=== PATIENT | male | born 1950 | race Caucasian/White ===

== ENCOUNTER 2018-07-22 10:55 | Outpatient (REF) | payer MEDICARE, MEDICAID, SELFPAY ==
[2018-07-22 22:03] LABS: HCT 48.9 % (40.0-50.0); HGB 17.1 g/dL (13.5-17.5); Mean Corpuscular Hemoglobin 32.7 pg (27.0-33.0); Mean Corpuscular Volume 93.5 fL (80-95); Mean Platelet Volume 10.1 fL (8.0-11.0); Platelet Count 372 x1000/uL (130-400); RBC 5.23 m/cumm (4.50-6.00); RBC Distribution Width 13.5 % (11.8-14.1); White Blood Cell Count 7.19 k/cumm (4.4-10.8)
[2018-07-22 22:10] LABS: ALT 24 U/L (12-78); AST 15 U/L (15-37); Albumin 3.7 g/dL (3.4-5.0); Alkaline Phosphatase 87 U/L (46-116); Anion Gap 7.7 mmol/L (3-11); BUN 7 mg/dL (7-18); Bilirubin, Total 0.3 mg/dL (0.2-1.0); CO2 31.3 mmol/L (21.0-32.0); CREATININE 0.63 mg/dL (0.70-1.30); Calcium 9.6 mg/dL (8.5-10.1); Chloride 97 mmol/L (98-107); Cholesterol 169 mg/dL (50-200); Glucose 100 mg/dL (70-100); HDL Cholesterol 33 mg/dL (40-60); LDL CHOLESTEROL 114 mg/dL (<100); Potassium 4.8 mmol/L (3.5-5.1); Sodium 136 mmol/L (136-145); Total Protein 6.6 g/dL (6.4-8.2); Triglyceride 118 mg/dL (30-150)
[2018-07-24 10:16] LABS: Hepatitis C Ab w Rflx HCV PCR Negative (NEGAT)
== END 2018-07-22 11:15 ==
LOC: NCHCN 10:55
PROVIDERS: PCP Family Medicine; Visit Provider Internal Medicine
DX: J44.9 Chronic obstructive pulmonary disease, unspecified (principal); I73.9 Peripheral vascular disease, unspecified; F10.10 Alcohol abuse, uncomplicated; F17.200 Nicotine dependence, unspecified, uncomplicated; Z11.59 Encounter for screening for other viral diseases
CPT/HCPCS: 80053; 80061; 83721; 85027; 86803

== ENCOUNTER 2018-10-23 11:34 | Outpatient (REF) | payer MEDICARE, MEDICAID, SELFPAY ==
[2018-10-23 13:46] LABS: ALT 61 U/L (12-78); AST 42 U/L (15-37); Calculated LDL 75; Cholesterol 141 mg/dL (50-200); HDL Cholesterol 52 mg/dL (40-60); Triglyceride 73 mg/dL (30-150)
== END 2018-10-23 11:54 ==
LOC: NCHCN 11:34
PROVIDERS: PCP Family Medicine; Visit Provider Internal Medicine
DX: J44.9 Chronic obstructive pulmonary disease, unspecified (principal); E78.6 Lipoprotein deficiency; I73.9 Peripheral vascular disease, unspecified
CPT/HCPCS: 80061; 83721; 84450; 84460

== ENCOUNTER 2020-10-04 23:50 | Emergency (ER) | payer OTHER, MEDICAID, SELFPAY ==
[2020-10-04 23:52] VITALS: BP 155/87; PULSE 92; RESP 18; TEMP 36.8; O2SAT 95
--- NOTE | 2020-10-04 23:56 | ED.GENADUL_ITS ---
Discharge Plan Disposition Patient Disposition: HOME Condition: Good Discharge Details Clinical Impression: Low back strain Primary Care Provider: Chanda Borges ED Provider: Reginaldo Romero Meds and New Rx's Prescriptions: New methocarbamol 500 mg tablet 500 mg PO TID PRN (Reason: spasms) Qty: 15 RF: 0 ibuprofen 600 mg tablet 600 mg PO TID PRN (Reason: pain) Qty: 15 RF: 0 lidocaine 5 % adhesive patch,medicated 1 patch topical DAILY Qty: 15 RF: 0 Continued albuterol sulfate 2.5 MG/3 ML solution for nebulization 2.5 mg UPD Q2H PRN PRNQty: 60 RF: 1 Nicotrol 10 MG cartridge 10 mg Inhalation DIRECTED PRN (Reason: cigarette cravings) Qty: 1 RF: 0 nicotine 1 EACH patch 24 hour 1 ea Transdermal DAILY Qty: 42 RF: 0 clopidogrel 75 mg tablet 75 mg PO DAILY RF: 0 aspirin 81 mg tablet,delayed release (DR/EC) 81 mg PO DAILY RF: 0 budesonide-formoterol [Symbicort] 160-4.5 mcg/actuation HFA aerosol inhaler 1 puff INHALATION DAILY RF: 0 Discharge Instructions Instructions: Low Back Strain (ED) Additional Instructions: Your pain is related to low back strain from lifting. Should improve with time, heat, gentle stretching. You may use lidocaine patch, ibuprofen, methocarbamol for pain and spasm but take only as directed. Follow-up with primary care next week if not improving. Return to ED for any neurologic change, bladder or bowel dysfunction, abdominal pain, other concerns. Referrals: Chanda Borges [Primary Care Provider] - Medical Decision Making Patient with low back pain related to lifting heavy object. Does have some mid lumbar spinal tenderness so will obtain x-ray given age. Will treat with IM ketorolac, topical lidocaine patch, p.o. Robaxin. X-ray of the LS spine negative for any acute findings. Patient seems better after medications. Will be discharged home on ibuprofen, Robaxin, lidocaine patches. Heat, gentle stretching, follow-up with PCP next week if not improving. Return to ED for any neurologic change, bladder bowel dysfunction, abdominal pain. HPI General Mode of arrival: EMS . Date/Time Provider Initiated Documentation: 10/04/20 23:56 . Limitations to Documentation: no limitations . Information obtained by: patient, EMS and RN notes reviewed . HPI Narrative: Patient presents to ED by ambulance with low back pain. Patient reports renting a joey today. As he was lifting it to get it into the house he felt pain in his lower back. He was unable to get into the house. Subsequently has had worsening back pain. Denies having any abdominal pain, bladder or bowel dysfunction, numbness, weakness. He did drink 3 Budweiser beers but did not take anything for pain. He is now here because movement is very uncomfortable and he cannot get any sleep because of the back pain. Related Data Home Medications Medication Instructions Recorded Confirmed Nicotrol 10 mg INHALATION DIRECTED PRN 07/20/15 10/04/20 #1 ctr albuterol sulfate 2.5 mg UPD Q2H PRN PRN #60 vial NS 07/20/15 10/04/20 nicotine 1 ea TRANSDERMAL DAILY #42 07/20/15 10/04/20 patch.td24 aspirin 81 mg PO DAILY 10/04/20 10/04/20 budesonide-formoterol [Symbicort] 1 puff INHALATION DAILY 10/04/20 10/04/20 clopidogrel 75 mg PO DAILY 10/04/20 10/04/20 ibuprofen 600 mg PO TID PRN #15 tab 10/05/20 lidocaine 1 patch TOPICAL DAILY #15 ea 10/05/20 methocarbamol 500 mg PO TID PRN #15 tab 10/05/20 Previous Rx's Medication Instructions Recorded Nicotrol 10 mg INHALATION DIRECTED PRN 07/20/15 #1 ctr albuterol sulfate 2.5 mg UPD Q2H PRN PRN #60 vial NS 07/20/15 nicotine 1 ea TRANSDERMAL DAILY #42 07/20/15 patch.td24 ibuprofen 600 mg PO TID PRN #15 tab 10/05/20 lidocaine 1 patch TOPICAL DAILY #15 ea 10/05/20 methocarbamol 500 mg PO TID PRN #15 tab 10/05/20 Allergies Allergy/AdvReac Type Severity Reaction Status Date / Time No Known Allergies Allergy Unverified 10/19/16 07:42 Review of Systems Narrative: As documented in HPI otherwise negative as below. Const: no fever, chills, weakness Resp: no cough, SOB, pleuritic pain CV: no CP, diaphoresis, edema, syncope GI: no abdominal pain, nausea, vomiting, diarrhea Neuro: no headache, numbness, focal weakness, confusion [facility] Medical History (Updated 10/05/20 @ 01:54 by Reginaldo Romero MD) Alcohol dependence Atrial arrhythmia COPD (chronic obstructive pulmonary disease) Hypercholesterolemia Surgical History (Updated 10/05/20 @ 00:35 by Reginaldo Romero MD) Colonoscopy - MAC (10/19/16) History of femoropopliteal bypass Vasectomy Social History Smoking/Tobacco Use Status: Current every day Smoking risk assessment performed?: Yes Alcohol Intake: current Alcohol Intake frequency: 3 or more drinks per day Alcohol type: beer Drug use: Never Substance use type: does not use Do you feel safe at home: Yes Do you feel safe in your relationship?: Yes Exam Narrative Exam Narrative: Const: Thin, elderly male in NAD. HEENT: NC/AT. Normal facial exam. Eyes: Normal conjunctiva and sclera. Neck: Supple. Trachea midline. Lungs: Normal respiratory effort. GI: Soft. NT/ND. Back: Pain to palpation of mid lumbar spine and right mid lumbar back. Neuro: A+O x 3. Normal speech, mentation, gait. Cranial nerves II - XII grossly intact. No gross motor or sensory deficit. BLE with normal sensation and 5/5 strength. Ext: No C/C/E. Skin: Warm and dry.
--- NOTE | 2020-10-05 | DI.RAD_ITS ---
Exam(s) XR LUMBAR SPINE AP, LAT EXAM: XR LUMBAR SPINE AP, LAT CLINICAL HISTORY: back pain. TECHNIQUE: 2D digital imaging was performed. COMPARISON: CR CHEST 2 VIEWS PA,LAT from 07/19/2015 FINDINGS: BONES: No fracture or destructive lesion. Vertebral bodies are unremarkable. No facet hypertrophy clarisa ntified. DISKS: There is mild narrowing of the L1-L2 disc space. There are endplate osteophytes seen in the l ower thoracic and upper lumbar spine. Degenerative changes of the facet joints at L4-5 and L5-S1 are noted. ALIGNMENT: Lumbar spinal alignment is within normal limits. SOFT TISSUE: There is a right iliac stent. Atherosclerosis. IMPRESSION: No acute fracture or dislocation. DATA REPOSITORY: RADIATION DOSE DELIVERED:
[2020-10-05] MEDS: Lidocaine 5% Patch 1 PATCH TP (00:23)
[2020-10-05] MEDS: Ketorolac 15 MG/ML VIAL IM (00:23)
[2020-10-05] MEDS: Methocarbamol 500 MG TAB PO (00:23)
--- NOTE | 2020-10-05 01:46 | DI.VRAD_ITS ---
PROCEDURE INFORMATION: Exam: XR Lumbosacral Spine Exam date and time: 10/05/2020 12:15 AM Age: 70 years old Clinical indication: Low back pain; Patient HX: Pain after lifting, heard a pop TECHNIQUE: Imaging protocol: XR of the lumbosacral spine. Views: 2 or 3 views. COMPARISON: No relevant prior studies available. FINDINGS: Bones/joints: Lower lumbar facet arthropathy. No acute fracture. Soft tissues: Unremarkable. Vasculature: Right iliac stent noted. IMPRESSION: No acute finding. Dictated and Authenticated by: Travis Gonzalez MD. Ordering:ISAEL Hair MD
[2020-10-05 01:47] VITALS: BP 142/76; PULSE 89; RESP 16; O2SAT 98
== END 2020-10-05 02:12 | disposition home or self-care (01) ==
PROVIDERS: Emergency Provider Emergency Medicine; PCP Family Medicine
DX: S39.012A Strain of muscle, fascia and tendon of lower back, initial encounter (principal); X50.0XXA Overexertion from strenuous movement or load, initial encounter
CPT/HCPCS: 96372; 99284; 72100; 99283; J1885

== ENCOUNTER 2020-12-27 13:33 | Outpatient (REF) | payer OTHER, MEDICAID, SELFPAY ==
[2020-12-27 20:18] LABS: Anion Gap 5.9 mmol/L (3-11); BUN 9 mg/dL (7-18); CO2 30.1 mmol/L (21.0-32.0); CREATININE 0.6 mg/dL (0.70-1.30); Calcium 9.8 mg/dL (8.5-10.1); Chloride 102 mmol/L (98-107); Glucose 132 mg/dL (74-106); Potassium 4.3 mmol/L (3.5-5.1); Sodium 138 mmol/L (136-145)
[2020-12-27 20:42] LABS: Calculated LDL 96 mg/dL (<100); Cholesterol 179 mg/dL (<200); HDL Cholesterol 58 mg/dL (40-60); Triglyceride 125 mg/dL (<150)
== END 2020-12-27 13:34 | disposition home or self-care (01) ==
LOC: NCHCN 13:33
PROVIDERS: PCP Family Medicine; Visit Provider Internal Medicine
DX: E78.6 Lipoprotein deficiency (principal); F10.10 Alcohol abuse, uncomplicated; J44.9 Chronic obstructive pulmonary disease, unspecified; F17.210 Nicotine dependence, cigarettes, uncomplicated
CPT/HCPCS: 80048; 80061

== ENCOUNTER 2021-01-02 01:56 | Outpatient (CLI) | payer OTHER, MEDICAID, SELFPAY ==
--- NOTE | 2021-01-02 | DI.CT_ITS ---
Exam(s) CT CHEST W EXAM: CT CHEST W CLINICAL HISTORY: HEAVY SMOKER,F17.210, F/U INFILTRATES TECHNIQUE: Imaging Protocol: Axial computed tomography images with coronal and sagittal reformatted images were created and reviewed CONTRAST MATERIAL: Intravenous: Omnipaque 350 Contrast volume:70 mL. COMPARISON: CT CT CHEST LUNG CANCER SCREEN from 06/27/[address] CHEST LUNG CANCER SCREEN from 06/27/2020 FINDINGS: Tracheobronchial tree: Patent where visualized. Mediastinum and Kim: No dominant adenopathy or fluid collection. Thyroid gland: Unremarkable. Pulmonary parenchyma: There is stable scarring or atelectasis in the lateral aspect of the left lingu la. There is scarring and focal bronchiectasis again seen in the medial aspect of the right middle l obe. No new infiltrates are seen. No pulmonary nodules are present. Centrilobular emphysematous ch anges are present. Pleura: No effusion or pneumothorax. Heart: The heart is not dilated. Mild coronary artery calcification. No pericardial effusion. Aorta: Thoracic aorta non-dilated. Moderate atherosclerosis. Upper abdomen: Unremarkable. Lymph nodes: Within normal limits. Bones: There is an old T9 compression deformity. Degenerative changes are seen in the thoracic spine . Soft tissues: Unremarkable. IMPRESSION: 1. Stable areas of scarring in the right middle lobe and the left lingula. 2. No significant change compared to the prior examination. 3. Centrilobular emphysema. RADIATION DOSE DELIVERED: 398.13mGy.cm Total DLP DATA REPOSITORY: All CT scans at this facility are submitted to the National Radiology Data Registry (NRDR) Dose Index Registry (DIR) with the [employer] (A[employer]). RADIATION OPTIMIZATION: All CT scans at this facility use at least one of these dose optimization te chniques: automated exposure control; mA and/or kV adjustment per patient size (includes targeted exa ms where dose is matched to clinical indication); or iterative reconstruction.
[2021-01-02] MEDS: Omnipaque 350 MG/ML 100 ML BTL IJ (15:12)
[2021-01-02] MEDS: Normal Saline Flush 10 ML SYR IVP (15:14)
== END 2021-01-02 02:16 ==
PROVIDERS: PCP Family Medicine; Visit Provider Internal Medicine
DX: F17.210 Nicotine dependence, cigarettes, uncomplicated (principal); J43.2 Centrilobular emphysema; J98.4 Other disorders of lung
CPT/HCPCS: 71260; J3490

== ENCOUNTER 2021-06-28 16:52 | Outpatient (REF) | payer OTHER, MEDICAID, SELFPAY ==
[2021-06-28 15:15] LABS: HCT 47.9 % (40.0-50.0); HGB 16.3 g/dL (13.5-17.5); MCH 32.4 pg (27.0-33.0); MCV 95.2 fL (80-95); MPV 10.4 fL (8.0-11.0); Platelet Count 259 10^3/uL (130-400); RBC 5.03 10^6/uL (4.36-5.78); RDW-SD 49.1 fL; WBC 7.44 10^3/uL (4.4-10.8)
[2021-06-28 15:44] LABS: ALT 22 U/L (16-63); AST 17 U/L (15-37); Alkaline Phosphatase 74 U/L (46-116); Anion Gap 6.5 mmol/L (3-11); BUN 8 mg/dL (7-18); Bilirubin, Total 0.5 mg/dL (0.2-1.0); CO2 28.5 mmol/L (21.0-32.0); CREATININE 0.5 mg/dL (0.70-1.30); Calcium 9.5 mg/dL (8.5-10.1); Chloride 99 mmol/L (98-107); Glucose 98 mg/dL (74-106); Potassium 4.6 mmol/L (3.5-5.1); Sodium 134 mmol/L (136-145); Total Protein 6.8 g/dL (6.4-8.2)
== END 2021-06-28 16:53 | disposition home or self-care (01) ==
LOC: NCHCN 16:52
PROVIDERS: PCP Family Medicine; Visit Provider Family Medicine
DX: R03.0 Elevated blood-pressure reading, without diagnosis of hypertension (principal)
CPT/HCPCS: 80053; 85027; 85025

== ENCOUNTER → 2022-01-10 03:21 | Outpatient (CLI) | payer MEDICARE, MEDICAID, SELFPAY ==
--- NOTE | 2022-01-10 | DI.CTLCSR_ITS ---
Exam(s) CT CHEST LUNG CANCER SCREEN EXAM: CT CHEST LUNG CANCER SCREEN CLINICAL HISTORY: SCREENING FOR LUNG CA, CIGARETTE SMOKER, F17.210, COPD, J44.9, PREVENTATIVE TECHNIQUE: Imaging Protocol: Axial computed tomography images with coronal and sagittal reformatted images were created and reviewed COMPARISON: CT CT CHEST W from 01/02/2021 FINDINGS: Tracheobronchial tree: Patent where visualized. Pulmonary parenchyma: No consolidation or dominant measurable mass. Centrilobular emphysematous correa es are present in the lungs. There is again seen scarring in the left lingula and medial aspect of t he right middle lobe. Lung Nodules: None. Mediastinum and Kim: No dominant adenopathy or fluid collection. The esophagus is unremarkable. Thyroid gland: Unremarkable. Lymph nodes: Unremarkable. Pleura: No effusion or pneumothorax. Heart: The heart is not dilated. Coronary artery calcifications are present. No pericardial effusion . Aorta: Thoracic aorta non-dilated.Atherosclerosis is present. Upper abdomen: Unremarkable. Soft Tissues: Unremarkable. Bones: Within normal limits. There is a stable T9 compression fracture deformity. IMPRESSION: No pulmonary nodules. Lung RADS Cat 1 - Negative: No nodules and definitely benign nodules Lung-RADS 1.0 CATEGORIES: Category 0 - Prior chest CT exam(s) being located for comparison. Category 1 - Annual screening in 12 months. No nodules or definitely benign nodules. Category 2 - Annual screening in 12 months. Benign appearance. Nodules with low likelihood of becomin g active cancer. Category 3 - 6-month follow-up. Probably benign. Short-term follow-up suggested. Nodules with low lik elihood of becoming active cancer. Category 4A - 3-month follow-up and CT/PET if >8 mm in size. Suspicious finding. Findings which requi re additional testing. Category 4B - Findings which require additional testing and tissue sampling. Suspicious finding. Category 4X - Category 3 or 4 nodules with additional features or imaging findings that increases the suspicion of malignancy. Modifier S- Potentially clinically significant finding. (Non lung cancer) RADIATION DOSE DELIVERED: 79.46mGy.cm Total DLP 1.84mGy CTDIvol 79.46mGy.cm Total DLP 1.84mGy CTDIvol DATA REPOSITORY: All CT scans at this facility are submitted to the National Radiology Data Registry (NRDR) Dose Index Registry (DIR) with the [employer] (ACR). RADIATION OPTIMIZATION: All CT scans at this facility use at least one of these dose optimization te chniques: automated exposure control; mA and/or kV adjustment per patient size (includes targeted exa ms where dose is matched to clinical indication); or iterative reconstruction.
== END ==
PROVIDERS: PCP Family Medicine; Visit Provider Family Medicine
DX: Z12.2 Encounter for screening for malignant neoplasm of respiratory organs (principal); F17.210 Nicotine dependence, cigarettes, uncomplicated; J44.9 Chronic obstructive pulmonary disease, unspecified
CPT/HCPCS: 71271

== ENCOUNTER 2022-06-25 09:14 | Outpatient (REF) | payer OTHER, MEDICAID, SELFPAY ==
[2022-06-25 15:17] LABS: Abs Immature Grans 0.02 10^3/uL (0.0-0.06); Absolute Basophil Count 0.13 10^3/uL (0.0-0.2); Absolute Eosinophil Count 0.27 10^3/uL (0.0-0.7); Absolute Lymphocyte Count 1.92 10^3/uL (1.2-3.4); Absolute Monocyte Count 0.64 10^3/uL (0.1-0.8); Absolute Neutrophil Count 3.81 10^3/uL (1.2-6.7); Basophils % 1.9; HCT 52.6 % (40.0-50.0); HGB 17.5 g/dL (13.5-17.5); Immature Grans % 0.3; Lymphocytes % 28.3; MCH 31.4 pg (27.0-33.0); MCHC 33.3 % (32.0-36.0); MCV 94 fL (80-95); MPV 10.2 fL (8.0-11.0); Monocytes % 9.4; Neutrophils % 56.1; Platelet Count 216 10^3/uL (130-400); RBC 5.57 10^6/uL (4.36-5.78); RDW 13.6 % (11.8-14.1); RDW-SD 47.8 fL; WBC 6.79 10^3/uL (4.4-10.8)
[2022-06-25 15:45] LABS: ALT 18 U/L (16-63); AST 14 U/L (15-37); Alkaline Phosphatase 83 U/L (46-116); Anion Gap 5.5 mmol/L (3-11); BUN 8 mg/dL (7-18); Bilirubin, Total 0.5 mg/dL (0.2-1.0); CO2 31.5 mmol/L (21.0-32.0); CREATININE 0.5 mg/dL (0.70-1.30); Calcium 9.5 mg/dL (8.5-10.1); Chloride 101 mmol/L (98-107); Estimated GFR 107.03 (mL/min/1.73m2); Glucose 87 mg/dL (74-106); Potassium 4.6 mmol/L (3.5-5.1); Sodium 138 mmol/L (136-145); Total Protein 6.8 g/dL (6.4-8.2)
== END 2022-06-25 09:15 | disposition home or self-care (01) ==
LOC: NCHCN 09:14
PROVIDERS: PCP Family Medicine; Visit Provider Family Medicine
DX: E78.6 Lipoprotein deficiency (principal); I70.213 Atherosclerosis of native arteries of extremities with intermittent claudication, bilateral legs; F10.10 Alcohol abuse, uncomplicated
CPT/HCPCS: 80053; 85025

== ENCOUNTER 2022-08-21 19:03 | Emergency (ER) | payer OTHER, MEDICAID, SELFPAY ==
[2022-08-21] VITALS (27 sets, daily range): BP systolic 114–145; BP diastolic 59–99; PULSE 64–78; RESP 6–19; TEMP 36.7; O2SAT 98
--- NOTE | 2022-08-21 19:15 | RT.EKG_ITS ---
APPROVED REPORT Exam: Resting ECG Reason for Exam: Syncope Patient Location: E HR:74 bpm ECG Measurements Heart Rate 74 AXIS TX 162 P 84 QRSd 100 QRS 87 QT 392 T 49 QTc 436 Conclusion Sinus rhythm...normal P axis, V-rate 60- 99 Anteroseptal infarct, age indeterminate...Q >35mS, T neg, V1-V2 No major change vs. prior
--- NOTE | 2022-08-21 19:22 | DI.RAD_ITS ---
Exam(s) XR CHEST 1V IN DI DEPT EXAM: XR CHEST 1V IN DI DEPT CLINICAL HISTORY: Syncope TECHNIQUE: 2D digital imaging was performed of the chest. Two images were obtained. AP views were obtained. COMPARISON: CR CHEST 2 VIEWS PA,LAT from 07/19/2015 FINDINGS: MEDIASTINUM: Normal. HEART: Normal. PULMONARY VASCULATURE: Normal. LUNGS: The lungs are hyperinflated consistent with COPD. An ovoid opacity is seen in the left lung b ase laterally. It measures approximately 1 cm. No focal consolidating infiltrates are seen. PLEURAL SPACE: No pleural effusion or pneumothorax. BONE:Within normal limits for the patient's age. There is an old healed right rib fracture. OTHER FINDINGS:Normal. IMPRESSION: 1. No acute pulmonary findings. 2. Question of a ovoid 1 cm density in the lateral left lung base. Follow-up as clinically appropria te. A CT scan of the chest may be obtained. Unexpected findings DATA REPOSITORY: RADIATION DOSE DELIVERED:
--- NOTE | 2022-08-21 19:24 | W.ED.GENAD ---
Discharge Plan Disposition Patient Disposition: Home Condition: Improving Discharge Details Clinical Impression: Acute pain of right hip, Compression fx, lumbar spine, Brain aneurysm Primary Care Provider: Chanda Borges ED Provider: Pola Oconnell Home Meds and New Rx's Prescriptions: No Action albuterol sulfate 2.5 MG/3 ML solution for nebulization 2.5 mg UPD Q2H PRN PRNQty: 60 1RF Nicotrol 10 MG cartridge 10 mg Inhalation DIRECTED PRN (Reason: cigarette cravings) Qty: 1 0RF nicotine 1 EACH patch 24 hour 1 ea Transdermal DAILY Qty: 42 0RF Rx Instructions: 21 mcg patch and prn nicotrol clopidogrel 75 mg tablet 75 mg PO DAILY Patient Comments: TAKE ONE TABLET BY MOUTH EVERY DAY aspirin 81 mg tablet,delayed release (DR/EC) 81 mg PO DAILY Patient Comments: TAKE ONE TABLET BY MOUTH EVERY DAY budesonide-formoterol [Symbicort] 160-4.5 mcg/actuation HFA aerosol inhaler 1 puff INHALATION DAILY methocarbamol 500 mg tablet 500 mg PO TID PRN (Reason: spasms) Qty: 15 0RF ibuprofen 600 mg tablet 600 mg PO TID PRN (Reason: pain) Qty: 15 0RF lidocaine 5 % adhesive patch,medicated 1 patch topical DAILY Qty: 15 0RF Rx Instructions: leave on most painful area for up to 12 hrs Discharge Instructions Instructions: Hip Pain (ED), Nonruptured Cerebral Aneurysm (DC) Additional Instructions: At this time there are a few things going on. First: You have evidence of a lumbar vertebra compression fracture. This is likely old as you have no pain or discomfort in that area. If you do develop any pain in your mid to lower back, or any numbness in your groin, bowel or bladder incontinence, or numbness or weakness in your legs please return immediately for reassessment. Second: You do have evidence of a small aneurysm in your brain. It is 6 mm. Well nothing needs to be done emergently right now, it does need to be evaluated quickly by neurovascular surgery at [facility]. They will contact you for an appointment. If you have not heard back from them in the next 48 to 72 hours please reach out to them yourselves at [phone]. Even though you have no headache whatsoever, if you do develop a headache please return for reassessment immediately. Third: The x-ray shows no evidence of fracture. The CAT scan of your hip shows no evidence of fracture either. It is unclear as to what the exact cause of the hip pain is that you have, however there is no current evidence of significant fracture. You may need an MRI for further assessment. We did discuss staying overnight and getting PT and OT, however you have elected to go home. We will place a referral with design engineering specialist, as well as PT and OT on an outpatient basis for further assessment. You can take at 1000 mg of Tylenol every 6 hours as needed for pain. This is the maximum dose. You can always return if you want reassessment at any time. If you notice any worsening of your symptoms, or any new symptoms such as vomiting, diarrhea, fever, chills, shortness of breath, chest pain, numbness, weakness, or fainting , please return immediately to the emergency department for reevaluation. Please follow up with your primary care provider as soon as possible for reassessment and reevaluation. As always, it was a pleasure participating in your medical care today. Referrals: Chanda Borges [Primary Care Provider] - Johan Nazario MD [ [facility] STAFF PHYSICIAN] - Kwame Salazar MD [ [facility] STAFF PHYSICIAN] - Discharge Data Discharge Date/Time-TO BE ENTERED AT DEPARTURE: 08/22/22 00:13 Medical Decision Making <Solange Brown MD - Last Filed: 08/22/22 14:56> ECG Data Attestation: I personally reviewed and interpreted this ECG (s) as follows: Interpretation: EKG: Normal sinus rhythm at 75, Q waves V1 and V2 with delayed R wave progression. <Pola Oconnell DO - Last Filed: 08/22/22 00:16> Dr. Oconnell's documentation: Patient was signed out to me by my colleague pending imaging and work-up. Please refer to her HPI, physical exam, assessment and plan. Laboratory work-up has returned, mild white count of 13, no bandemia. Electrolytes all normal, renal function good. Alcohol level minimally elevated only at 14. Patient notably clinically sober. Troponin normal. Repeat troponin also normal. CTA/CT scan of the brain demonstrates evidence of 6 mm hyperattenuating aneurysm without any evidence of leakage or rupture. Patient has no headache whatsoever. In addition to this he states that when he fell earlier today he also had no headache whatsoever, and no other complaint of neck pain or vision changes. Suspect chronic aneurysm. I did contact [facility] and discussed the case with Monica from [facility] neurosurgery/neuro vascular surgery, and she after review of the images and discussion of the case recommends close follow-up in the outpatient clinic as the patient is neurovascularly stable clinically. X-rays show no acute process for the hip or chest otherwise, however patient still had notable pain in the right hip. There was evidence of a compression fracture in his vertebra, however he has no vertebral pain whatsoever. No midline vertebral pain, and no signs of cauda equina syndrome whatsoever clinically. No saddle anesthesia. No bowel or bladder incontinence. No signs of disc pathology or rupture to suggest cord compression. With the patient's pain CT scan was ordered of the abdomen and pelvis, and this is read as negative by radiology. I did contact the radiologist specifically and discussed this with them, they see no evidence of fracture. Patient still has mild pain in his right hip when he gets up which he states is new. He was able to ambulate with a walker with assistance though. I did recommend admission with plan for PT OT and MRI however patient refuses. He states that he would prefer to go home, even if he has to use a walker. I did discuss risks and benefits of these decisions, and the patient understands and still is requesting to go home. His family members are at bedside, and I also discussed this with them, they agree with this plan and are comfortable with that including with the patient's current needs. Patient will be discharged respecting his desires and wishes. We will place a PT OT referral for outpatient, as well as Ortho referral. We will give the patient a walker for home use. We did give the patient the number for the [facility] neurovascular clinic to follow-up with and we did fax a referral to the neurosurgical clinic as well. Discussed red flags for which to return. At this time there is no clinical evidence of GA, STEMI, stroke, or other significant abnormality that requires acute immediate intervention. I have extensively reviewed the treatment plan and discharge instructions with the patient. I have addressed all patient concerns at this time. The patient was made aware of what symptoms to monitor for that would warrant a return to the emergency department. Discussed the plan with the patient, they demonstrate verbal understanding and agreement with our assessment and plan at this time. The documentation in this chart was dictated using [employer] dictation software. Please excuse any dictation errors. FINDINGS: Lungs: Lungs are hyperexpanded, compatible chronic obstructive pulmonary physiologic changes. Minimal bibasilar atelectasis and/or scarring. Pleural spaces: Unremarkable. No pleural effusion. No pneumothorax. Heart/Mediastinum: Normal. Vasculature: Atherosclerotic vascular disease. Bones/joints: Old, healed right posterior 7th rib fracture. IMPRESSION: No acute cardiopulmonary abnormality. Thank you for allowing us to participate in the care of your patient. Dictated and Authenticated by: Jeffery Delgado MD 08/21/2022 8:31 PM Eastern Time ([place] & [place]) FINDINGS: Bones/joints: Long segment metallic stent of the right iliac arteries. Mild degenerative changes of the hips, mild joint space narrowing minimal osteophyte formation. No dislocation. No definite evidence of acute fracture, although evaluation of the right femoral neck is somewhat limited on this exam. Soft tissues: Unremarkable. Vasculature: Atherosclerotic vascular disease. IMPRESSION: No definite evidence of acute fracture, although evaluation of the right femoral neck is somewhat limited on this exam. Consider CT for definitive evaluation if clinically indicated. Thank you for allowing us to participate in the care of your patient. Dictated and Authenticated by: Jeffery Delgado MD 08/21/2022 8:19 PM Eastern Time ([place] & [place]) FINDINGS: Brain: Periventricular and subcortical white matter areas of hypoattenuation, likely chronic small vessel ischemic change, demyelination, or gliosis. No intracranial mass, acute hemorrhage, or acute infarction. Cerebral ventricles: No ventriculomegaly. Paranasal sinuses: Mild ethmoid sinus disease. Mastoid air cells: Normal as visualized. Bones/joints: Normal. Soft tissues: Unremarkable Vasculature: 6 mm slightly hyperattenuating, partially calcified nodular focus within the left anterior qadafr-ch-Twzczs region, possibly aneurysm. IMPRESSION: 1. No acute intracranial abnormality. 2. 6 mm slightly hyperattenuating, partially calcified nodular focus within the left anterior samish-ofWillis region, possibly aneurysm. No evidence of leakage or rupture. Recommend further evaluation. Thank you for allowing us to participate in the care of your patient. Dictated and Authenticated by: Jeffery Delgado MD 08/21/2022 8:14 PM Eastern Time ([place] & [place]) FINDINGS: ANTERIOR CIRCULATION: Right internal carotid artery: Intracranial segment is patent with no significant stenosis or occlusion. No aneurysm. Right middle cerebral artery: No occlusion or significant stenosis. No aneurysm. Right anterior cerebral artery: No occlusion or significant stenosis. No aneurysm. Left internal carotid artery: Intracranial segment is patent with no significant stenosis. No aneurysm. Left middle cerebral artery: No occlusion or significant stenosis. No aneurysm. Left anterior cerebral artery: 6 x 6 x 6 mm aneurysm arising from the distal aspect of the left A1 segment (series 4, image 85), without evidence of leakage or rupture. POSTERIOR CIRCULATION: Right vertebral artery: No occlusion or significant stenosis. No aneurysm. Left vertebral artery: No occlusion or significant stenosis. No aneurysm. Basilar artery: No occlusion or significant stenosis. No aneurysm. Right posterior cerebral artery: No occlusion or significant stenosis. No aneurysm. Left posterior cerebral artery: No occlusion or significant stenosis. No aneurysm. HEAD: Brain: Normal. No hemorrhage. Unremarkable white matter. No mass effect. Cerebral ventricles: Normal. No ventriculomegaly. Bones/joints: Unremarkable. No acute fracture. Paranasal sinuses: Visualized sinuses are normal. No fluid levels. Mastoid air cells: Visualized mastoids are normal. No mastoid effusion. Soft tissues: Unremarkable. IMPRESSION: 1. 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 2. No intracranial arterial significant stenosis or occlusion. FINDINGS: Right common carotid artery: No stenosis. No dissection or occlusion. Right internal carotid artery: Calcified atherosclerotic plaque within the proximal right ICA, causing approximately 30% luminal narrowing. Right external carotid artery: No occlusion or stenosis of the origin. Left common carotid artery: No stenosis. No dissection or occlusion. Left internal carotid artery: Calcified atherosclerotic plaque within the proximal left ICA, causing less than 20% luminal narrowing. Left external carotid artery: No occlusion or stenosis of the origin. Right vertebral artery: No stenosis. No dissection or occlusion. Left vertebral artery: No stenosis. No dissection or occlusion. Aorta: Atherosclerotic disease of the visualized thoracic aortic arch, without aneurysm or dissection. Conventional thoracic aortic arch branch anatomy. Soft tissues: Normal. No significant soft tissue swelling. Bones/joints: Multilevel cervical spine degenerative disc space narrowing and osteophyte formation. Mild multilevel bilateral facet and uncovertebral arthropathy. Lungs: Moderate centrilobular emphysema within the visualized lung apices. Right pleuroparenchymal scarring. IMPRESSION: No extracranial arterial significant stenosis or occlusion. REFERENCES: NASCET CRITERIA. The degree of stenosis in the cervical segment of the internal carotid artery is based on NASCET criteria. Normal is no stenosis. Mild is less than 50% stenosis. Moderate is 50- 69% stenosis. Severe is 70% to 99% stenosis. Total occlusion is no detectable patent lumen. Thank you for allowing us to participate in the care of your patient. Dictated and Authenticated by: Jeffery Delgado MD 08/21/2022 10:11 PM Eastern Time ([place] & [place]) FINDINGS: Liver: Normal. No mass. Gallbladder and bile ducts: Normal. No calcified stones. No ductal dilation. Pancreas: Normal. No ductal dilation. Spleen: Normal. No splenomegaly. Adrenal glands: Normal. No mass. Kidneys and ureters: Normal. No hydronephrosis. Stomach and bowel: The stomach demonstrates wall thickening. This may relate to nondistention, however gastritis is not excluded. There is a 1.4 x 1.0 cm fat containing lesion within the wall of the gastric pylorus, compatible with gastric lipoma. Colonic diverticulosis. No evidence of acute diverticulitis. There is a significant volume of retained stool within the colon. Small bowel loops are nondilated. Appendix: No evidence of appendicitis. Intraperitoneal space: Unremarkable. No free air. No significant fluid collection. Vasculature: Dense abdominal aortic atherosclerotic plaque within its lumen and branch vessels. Changes of fem-fem bypass. A stent is noted within the right common and external iliac artery. Lymph nodes: Unremarkable. No enlarged lymph nodes. Urinary bladder: Unremarkable as visualized. Reproductive: Prostatomegaly. Bones/joints: There is a compression fracture of L3, with approximately 50% loss of height. Soft tissues: Unremarkable. IMPRESSION: 1. There is a compression fracture of L3, with approximately 50% loss of height. No visualized retropulsion of fracture fragments. 2. The stomach demonstrates wall thickening. This may relate to nondistention, however gastritis is not excluded. 3. There is a 1.4 x 1.0 cm fat containing lesion within the wall of the gastric pylorus, compatible with gastric lipoma. Thank you for allowing us to participate in the care of your patient. Dictated and Authenticated by: Frederic Vásquez MD 08/21/2022 11:17 PM Eastern Time ([place] & [place] HPI <Solange Brown MD - Last Filed: 08/22/22 14:56> General Date/Time Provider Initiated Documentation: 08/21/22 19:07. HPI Narrative: This 72-year-old male patient presents status post fall and near syncope. Patient states that recently he has been dizzy in the morning when he gets up. He had driven to the market to get some cigarettes and got out of his car. States he had just begun walking and was going around another vehicle when he just suddenly fell; he denies fully passing out and says his legs did not give out. He initially denied any precipitant symptoms (including dizziness) to me but later said that he got dizzy and fell. He fell on his right hip and arm. He denies hitting his head and is on Plavix. He complains of hip and groin pain on the right-hand side and says he has tingling in all 5 of his toes. Initially told me that he had lower back pain but later said this is more buttock on the right-hand side. He denies recent medication changes. He has no headache or vertigo, no focal neurologic complaints. He denies chest pain or shortness of breath. There is no abdominal pain. He has no pedal edema or calf pain. Patient does smoke and tells me that he drinks 3 beers per day. I do not smell alcohol on his breath. Related Data Home Medications Medication Instructions Recorded Confirmed albuterol sulfate 2.5 mg/3 mL 2.5 mg (3 mL) UPD Q2H PRN PRN ##60 07/20/15 10/04/20 (0.083 %) solution for nebulization nicotine 10 mg inhalation 10 mg inhalation DIRECTED PRN 07/20/15 10/04/20 cartridge (Nicotrol) cigarette cravings ##1 nicotine 21 mg/24 hr daily 1 ea transdermal DAILY ##42 07/20/15 10/04/20 transdermal patch aspirin 81 mg tablet,delayed 81 mg PO DAILY 10/04/20 10/04/20 release budesonide-formoterol HFA 160 1 puff inhalation DAILY 10/04/20 10/04/20 mcg-4.5 mcg/actuation aerosol inhaler (Symbicort) clopidogrel 75 mg tablet 75 mg PO DAILY 10/04/20 10/04/20 ibuprofen 600 mg tablet 600 mg PO TID PRN pain #15 tabs 10/05/20 lidocaine 5 % topical patch 1 patch topical DAILY #15 ea 10/05/20 methocarbamol 500 mg tablet 500 mg PO TID PRN spasms #15 tabs 10/05/20 Previous Rx's Medication Instructions Recorded albuterol sulfate 2.5 mg/3 mL 2.5 mg (3 mL) UPD Q2H PRN PRN ##60 07/20/15 (0.083 %) solution for nebulization nicotine 10 mg inhalation 10 mg inhalation DIRECTED PRN 07/20/15 cartridge (Nicotrol) cigarette cravings ##1 nicotine 21 mg/24 hr daily 1 ea transdermal DAILY ##42 07/20/15 transdermal patch ibuprofen 600 mg tablet 600 mg PO TID PRN pain #15 tabs 10/05/20 lidocaine 5 % topical patch 1 patch topical DAILY #15 ea 10/05/20 methocarbamol 500 mg tablet 500 mg PO TID PRN spasms #15 tabs 10/05/20 Allergies Allergy/AdvReac Type Severity Reaction Status Date / Time No Known Allergies Allergy Unverified 10/19/16 07:42 General Stated Complaint: Fall/Non TraumaCriteria SCOOBY: 3 Review of Systems <Solange Brown MD - Last Filed: 08/22/22 14:56> Constitutional Constitutional: Reports as per HPI, Denies chills, Denies fever(s) and Denies headache(s) Eyes Eyes: Denies blurry vision and Reports other (no redness) ENT Ears, Nose, Mouth, and Throat: Reports dizziness, Denies otalgia, Denies headache(s), Denies nasal congestion, Denies nasal discharge, Denies neck pain and Denies odynophagia Cardiovascular Cardiovascular: Denies chest pain, Denies palpitations and Denies dyspnea Respiratory Respiratory: Denies cough and Denies dyspnea Gastrointestinal Gastrointestinal: Denies abdominal pain, Denies diarrhea, Denies nausea, Denies odynophagia and Denies vomiting Genitourinary Genitourinary: Denies difficulty urinating and Denies dysuria Musculoskeletal Musculoskeletal: Denies myalgias, Denies muscle weakness, Denies neck pain and Denies numbness Integumentary/Breasts Skin/Breast: Denies erythema and Denies rash Neurologic Neurologic: Reports dizziness, Denies headache(s) and Denies numbness Endocrine Endocrine: Denies palpitations PFS <Solange Brown MD - Last Filed: 08/22/22 14:56> All Active Problems Low back strain (Acute) Acute pain of right hip (Acute) Compression fx, lumbar spine (Acute) Brain aneurysm (Acute) Alcohol dependence (Chronic) History of femoropopliteal bypass (Chronic) Hypercholesterolemia (Chronic) Atrial arrhythmia (Chronic) COPD (chronic obstructive pulmonary disease) (Chronic) Acute interstitial pneumonitis (Acute) Tobacco abuse (Acute) Arrhythmia (Acute) Incurved toenail (Acute) Dermatitis (Acute) Surgical History Colonoscopy - MAC (10/19/16) Vasectomy Social History Smoking/Tobacco Use Status: Current every day Smoking risk assessment performed?: Yes Alcohol Intake: current Alcohol Intake frequency: 3 or more drinks per day Alcohol type: beer Drug use: Never Substance use type: does not use Do you feel safe at home: Yes Do you feel safe in your relationship?: Yes Exam <Solange Brown MD - Last Filed: 08/22/22 14:56> Const General: no acute distress, well developed, well groomed and not in acute distress Nutritional Appearance: well nourished Orientation: alert and oriented x3 HENMT Head: normocephalic and atraumatic Ears: external ears normal Mouth: oropharynx normal and moist mucous membranes Throat: posterior oropharynx normal Eyes Conjunctivae: conjunctivae normal Neck Neck: full ROM, supple and no midline deformity Chest Chest: normal inspection of the chest Resp Effort & Inspection: normal respiratory effort Auscultation: clear to auscultation bilaterally Cardio Rate: regular rate Rhythm: regular rhythm Heart Sounds: no murmurs and no rubs GI Inspection: normal to inspection Palpation: soft, nontender and other (non distended) Auscultation: normal bowel sounds Back/Spine/Pelvis Back: no CVA tenderness Thoracic/Lumbar Spine: thoracic and lumbar spine normal to inspection, No thoracic spinal tenderness and No lumbar spinal tenderness Pelvis: no pain with anterior-posterior compression and no pain with lateral compression Skin General skin exam: no rashes or lesions noted and other (pink, warm, dry; no bruising or abrasions) Neuro General: patient alert, patient awake, patient oriented x3 and no focal motor deficits (feet push pulls and hand squeezes nl) Cranial Nerves: CN's II-XI intact bilaterally Speech: speech normal Gait: other (not assessed) Motor: other (MIGUEL although RLE is with difficulty; handgrips and feet push pulls are norm) Sensory Exam: no sensory deficits noted (Except patient says that he cannot feel all of his toes well.) Extrem General: normal to inspection, full ROM and pedal edema present Psych Appearance: grossly normal Mental Status: mental status grossly normal Speech and Movement: speech and movement normal Affect: normal affect Course <Solange Brown MD - Last Filed: 08/22/22 14:56> Vital Signs Vital signs: Vital Signs Temperature 36.7 C 08/21/22 19:09 Pulse 76 08/21/22 19:09 Respiratory Rate 19 08/21/22 19:09 Blood Pressure 125/99 H 08/21/22 19:09 Pulse Oximetry 98 08/21/22 19:09 Temperature 36.7 C 08/21/22 19:09 Temperature Source Temporal Artery Scan 08/21/22 19:09 Pulse 76 08/21/22 19:09 Respiratory Rate 19 08/21/22 19:09 Respiratory Effort Normal 08/21/22 19:14 Blood Pressure 125/99 H 08/21/22 19:09 Blood Pressure Position Sitting 08/21/22 19:09 Pulse Oximetry 98 08/21/22 19:09 Oxygen Delivery Method Room Air 08/21/22 19:09 Oxygen Flow Rate 0 08/21/22 19:09 Pain Level 6 08/21/22 19:09
--- NOTE | 2022-08-21 19:30 | DI.RAD_ITS ---
Exam(s) XR HIP RT COMPLETE AP PELVIS EXAM: XR HIP RT COMPLETE AP PELVIS CLINICAL HISTORY: hip and groin pain R s/p fall. TECHNIQUE: 2D digital imaging was performed of the right hip. Three images were obtained. AP pelvis and lateral right hip views were obtained. COMPARISON: No exams were available for comparison FINDINGS: BONES: No acute fracture is present. No bony destructive lesion is seen. JOINTS: No dislocation present. Degenerative changes are seen in the hips consistent with joint space narrowing and acetabular spurring. Findings most marked in the left hip. SOFT TISSUE: There is a stent in the right iliac arteries. Atherosclerosis. IMPRESSION: No definite acute fracture. If there is continued clinical concern a CT scan may be obtained for fur ther evaluation. DATA REPOSITORY: RADIATION DOSE DELIVERED:
--- NOTE | 2022-08-21 19:30 | DI.CT_ITS ---
Exam(s) CT HEAD WO EXAM: CT HEAD WO CLINICAL HISTORY: fall, plavix. TECHNIQUE: Imaging Protocol: Axial computed tomography images with coronal and sagittal reformatted images were created and reviewed COMPARISON: No exams were available for comparison FINDINGS: Ventricles and Extra axial spaces: Normal in size and morphology for the patient's age. Hemorrhage: None. Cerebral parenchyma: No evidence of an acute territorial infarct. There are areas of decreased atten uation in the white matter consistent with small vessel ischemic disease. There is a 0.6 x 0.6 cm hy perdense round mass within the region of the anterior left gkjysg-ju-Vqewfz possibly reflecting an an terior cerebral artery origin aneurysm. Midline shift: None. Brainstem/Cerebellum: Normal. Calvarium: Normal. Visualized Paranasal sinuses/Mastoids: Clear. Soft Tissues: Unremarkable. IMPRESSION: 1. No acute intracranial process. 2. 0.6 cm hyperdense round nodule which is partially calcified and is located in the region of the le ft anterior jhcqsp-mr-Klhviq. This may represent an aneurysm. No evidence of hemorrhage. Further e valuation with CT angiography or MR angiography is recommended. Unexpected findings RADIATION DOSE DELIVERED: 760.35mGy.cm Total DLP DATA REPOSITORY: All CT scans at this facility are submitted to the National Radiology Data Registry (NRDR) Dose Index Registry (DIR) with the [employer] (ACR). RADIATION OPTIMIZATION: All CT scans at this facility use at least one of these dose optimization te chniques: automated exposure control; mA and/or kV adjustment per patient size (includes targeted exa ms where dose is matched to clinical indication); or iterative reconstruction.
[2022-08-21 19:44] LABS: Abs Immature Grans 0.08 10^3/uL (0.0-0.06); Absolute Basophil Count 0.12 10^3/uL (0.0-0.2); Absolute Eosinophil Count 0.12 10^3/uL (0.0-0.7); Absolute Lymphocyte Count 1.41 10^3/uL (1.2-3.4); Absolute Monocyte Count 1.21 10^3/uL (0.1-0.8); Absolute Neutrophil Count 10.92 10^3/uL (1.2-6.7); Basophils % 0.9; Eosinophils % 0.9; HGB 14.7 g/dL (13.5-17.5); Immature Grans % 0.6; Lymphocytes % 10.2; MCH 31.9 pg (27.0-33.0); MCHC 33.4 % (32.0-36.0); MCV 95 fL (80-95); MPV 10.4 fL (8.0-11.0); Monocytes % 8.7; Neutrophils % 78.7; Platelet Count 276 10^3/uL (130-400); RBC 4.61 10^6/uL (4.36-5.78); RDW 14.4 % (11.8-14.1); RDW-SD 50.6 fL; WBC 13.87 10^3/uL (4.4-10.8)
--- NOTE | 2022-08-21 19:45 | DI.RAD_ITS ---
Exam(s) XR LUMBAR SPINE AP, LAT EXAM: XR LUMBAR SPINE AP, LAT CLINICAL HISTORY: fall, toe numbness. TECHNIQUE: 2D digital imaging was performed of the lumbar spine. Two images were obtained. AP and lateral views were obtained. COMPARISON: CR,XR XR LUMBAR SPINE AP, LAT from 10/05/[address] CHEST W from 01/02/2021 FINDINGS: BONES: There is a superior compression deformity of L3. There is loss of approximately 30 percent of the height of the vertebral body. This is age indeterminate. This was not present on the prior x-r ay of the lumbar spine from 10/05/2020. Degenerative changes are seen in the upper lumbar spine. Degen erative changes of the facets are seen in the lower lumbar spine. DISKS: There is disc space narrowing at T12-L1 and L1-L2. ALIGNMENT: Lumbar spinal alignment is within normal limits. No spondylolysis or spondylolisthesis. SOFT TISSUE: There is extensive atherosclerosis. There is a stent in the right iliac arteries. IMPRESSION: Compression fracture deformity of the superior endplate of L3. This is age indeterminate. It is new since the prior examination from 10/05/2020. If further evaluation is warranted, CT or MRI should be obtained. DATA REPOSITORY: RADIATION DOSE DELIVERED:
[2022-08-21 19:55] LABS: ETHANOL BLOOD 14.4 mg/dL (<10)
[2022-08-21 20:02] LABS: ALT 35 U/L (16-63); AST 20 U/L (15-37); Albumin 4.1 g/dL (3.4-5.0); Alkaline Phosphatase 70 U/L (46-116); Anion Gap 7.6 mmol/L (3-11); BUN 17 mg/dL (7-18); Bilirubin, Total 0.4 mg/dL (0.2-1.0); CO2 29.4 mmol/L (21.0-32.0); CREATININE 0.6 mg/dL (0.70-1.30); Calcium 9.7 mg/dL (8.5-10.1); Chloride 102 mmol/L (98-107); Glucose 86 mg/dL (74-106); Magnesium 1.8 mg/dL (1.8-2.4); Potassium 3.9 mmol/L (3.5-5.1); Sodium 139 mmol/L (136-145); Total Protein 7.3 g/dL (6.4-8.2); Troponin I < 50 ng/L (<or=60)
--- NOTE | 2022-08-21 20:15 | DI.VRAD_ITS ---
Addendum created by Jeffery Delgado MD on 08/21/2022 8:17:59 PM EDT: THIS REPORT CONTAINS FINDINGS THAT MAY BE CRITICAL TO PATIENT CARE. The findings were verbally communicated by me to Dr. Oconnell via telephone conference at 8:17 PM EDT on 08/21/2022. The findings were acknowledged and understood. Initial report created on 08/21/2022 8:14:56 PM EDT: PROCEDURE INFORMATION: Exam: CT Head Without Contrast Exam date and time: 08/21/2022 7:59 PM Age: 72 years old Clinical indication: Other: Fall, plavix TECHNIQUE: Imaging protocol: Computed tomography of the head without contrast. Radiation optimization: All CT scans at this facility use at least one of these dose optimization techniques: automated exposure control; mA and/or kV adjustment per patient size (includes targeted exams where dose is matched to clinical indication); or iterative reconstruction. COMPARISON: No relevant prior studies available. FINDINGS: Brain: Periventricular and subcortical white matter areas of hypoattenuation, likely chronic small vessel ischemic change, demyelination, or gliosis. No intracranial mass, acute hemorrhage, or acute infarction. Cerebral ventricles: No ventriculomegaly. Paranasal sinuses: Mild ethmoid sinus disease. Mastoid air cells: Normal as visualized. Bones/joints: Normal. Soft tissues: Unremarkable. Vasculature: 6 mm slightly hyperattenuating, partially calcified nodular focus within the left anterior itdgfs-wh-Aiwdxe region, possibly aneurysm. IMPRESSION: 1. No acute intracranial abnormality. 2. 6 mm slightly hyperattenuating, partially calcified nodular focus within the left anterior iioyzc-az-Hqflyq region, possibly aneurysm. No evidence of leakage or rupture. Recommend further evaluation. Dictated and Authenticated by: Jeffery Delgado MD. Ordering:EDDIE Narvaez MD
--- NOTE | 2022-08-21 20:19 | DI.VRAD_ITS ---
PROCEDURE INFORMATION: Exam: XR Right Hip Exam date and time: 08/21/2022 8:04 PM Age: 72 years old Clinical indication: Other: Hip and groin pain R S/P fall TECHNIQUE: Imaging protocol: Radiologic exam of the right hip. Views: 2 or 3 views hip with pelvis when performed. COMPARISON: CR XR LUMBAR SPINE AP, LAT 10/05/2020 12:48 AM FINDINGS: Bones/joints: Long segment metallic stent of the right iliac arteries. Mild degenerative changes of the hips, mild joint space narrowing minimal osteophyte formation. No dislocation. No definite evidence of acute fracture, although evaluation of the right femoral neck is somewhat limited on this exam. Soft tissues: Unremarkable. Vasculature: Atherosclerotic vascular disease. IMPRESSION: No definite evidence of acute fracture, although evaluation of the right femoral neck is somewhat limited on this exam. Consider CT for definitive evaluation if clinically indicated. Dictated and Authenticated by: Jeffery Delgado MD. Ordering:EDDIE Narvaez MD
--- NOTE | 2022-08-21 20:25 | DI.VRAD_ITS ---
PROCEDURE INFORMATION: Exam: XR Lumbosacral Spine Exam date and time: 08/21/2022 8:06 PM Age: 72 years old Clinical indication: Other: Fall, toe numbness TECHNIQUE: Imaging protocol: Radiologic exam of the lumbosacral spine. Views: 2 or 3 views. COMPARISON: CR XR LUMBAR SPINE AP, LAT 10/05/2020 12:48 AM FINDINGS: Bones/joints: Mild degenerative disc disease at the T12-L1 and L1-L2 levels, manifest by mild disc space narrowing, endplate sclerosis, and osteophyte formation. Compression fracture deformity of the superior aspect of the L3 vertebral body, with approximately 30% loss of anterior and central vertebral body height, new from comparison study, but of indeterminate age. Moderate L4-L5 and L5-S1 bilateral facet arthropathy. Soft tissues: Unremarkable. Vasculature: Atherosclerotic vascular disease. Metallic stents within the right iliac arteries. IMPRESSION: Compression fracture deformity of the superior aspect of the L3 vertebral body, with approximately 30% loss of anterior and central vertebral body height, new from comparison study, but of indeterminate age. Consider further evaluation with CT or MRI. Dictated and Authenticated by: Jeffery Delgado MD. Ordering:EDDIE Narvaez MD
--- NOTE | 2022-08-21 20:32 | DI.VRAD_ITS ---
PROCEDURE INFORMATION: Exam: XR Chest Exam date and time: 08/21/2022 8:09 PM Age: 72 years old Clinical indication: Other: Syncope TECHNIQUE: Imaging protocol: Radiologic exam of the chest. Views: 1 view. COMPARISON: CT CHEST LUNG CANCER SCREEN 01/10/2022 3:17 PM FINDINGS: Lungs: Lungs are hyperexpanded, compatible chronic obstructive pulmonary physiologic changes. Minimal bibasilar atelectasis and/or scarring. Pleural spaces: Unremarkable. No pleural effusion. No pneumothorax. Heart/Mediastinum: Normal. Vasculature: Atherosclerotic vascular disease. Bones/joints: Old, healed right posterior 7th rib fracture. IMPRESSION: No acute cardiopulmonary abnormality. Dictated and Authenticated by: Jeffery Delgado MD. Ordering:EDDIE Narvaez MD
[2022-08-21] MEDS: MORPHine 4 MG/ML SYR 2 MG IVP (21:23)
[2022-08-21] MEDS: Normal Saline 500 ML IV (21:23)
[2022-08-21] MEDS: ACETAMINOPHEN 1,000 MG/100 ML BTL 400 MG IVPB (21:23)
--- NOTE | 2022-08-21 21:30 | DI.CT_ITS ---
Exam(s) CT BRAIN NECK CTA EXAM: CT BRAIN NECK CTA CLINICAL HISTORY: anyurism, 6mm. TECHNIQUE: Imaging Protocol: Axial CT angiography was performed with multi-slice acquisition and mu lti-planar and/or 3D reconstructions. CONTRAST MATERIAL: Intravenous: Contrast contrast volume:structured data in ml mL COMPARISON: No exams were available for comparison FINDINGS: CT Head and W: Ventricles and Extra axial spaces: Normal in size and morphology for the patient's age. Hemorrhage: None. Cerebral parenchyma: No evidence of an acute territorial infarct. There are areas of decreased atten uation in the white matter consistent with small vessel ischemic disease. Midline shift: None. Brainstem/Cerebellum: Normal. Calvarium: Normal. Visualized Paranasal sinuses/Mastoids: Clear. Soft Tissues: Unremarkable. Enhancement: Unremarkable. CTA Neck W: Common Carotid: Right: No dissection, occlusion or significant stenosis. Atherosclerosis is present. Left: No dissection, occlusion or significant stenosis. There is atherosclerosis. External Carotid: Right: No occlusion or significant stenosis. Atherosclerosis at the origin. Left: No occlusion or significant stenosis. Atherosclerosis at the origin. Internal Carotid: Right: No dissection, occlusion or significant stenosis. Atherosclerosis is present. There is less than 50 percent narrowing. Left: No dissection, occlusion or significant stenosis. Atherosclerosis is present. There is approx imately 20 percent narrowing. Vertebral Artery: Right: No dissection, occlusion or significant stenosis. Atherosclerosis at the origin. Left: No dissection, occlusion or significant stenosis. Lung Apices: Moderate centrilobular emphysema is seen in the lung apices. There is pleural parenchym al scarring in the right lung apex. Bones: Within normal limits for the patient's age. Soft Tissues: Normal. Thyroid gland: Unremarkable. CTA Brain W: Internal Carotid Arteries: Atherosclerosis is present. Anterior Cerebral Arteries: Right: No aneurysm, occlusion or significant stenosis. Left: There is a 6 x 6 x 6 mm aneurysm which appears to arise from the distal aspect of the left A1 segment. No evidence of leakage or rupture. No evidence of occlusion or significant stenosis. Middle Cerebral Arteries: Right: No aneurysm, occlusion or significant stenosis. Left: No aneurysm, occlusion or significant stenosis. Posterior Cerebral Arteries: Right: No aneurysm, occlusion or significant stenosis. Left: No aneurysm, occlusion or significant stenosis. Vertebral Arteries: Right: No aneurysm, occlusion or significant stenosis. Left: No aneurysm, occlusion or significant stenosis. Basilar Artery: No aneurysm, occlusion or significant stenosis. IMPRESSION: 1. No large vessel occlusion or significant stenosis on the CT angiography of the head. 2. 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 No evidence of kaushal kage or rupture. 3. No acute intracranial process. 4. No occlusion or significant stenosis on the CT angiography of the neck. RADIATION DOSE DELIVERED: 1,185.72mGy.cm Total DLP DATA REPOSITORY: All CT scans at this facility are submitted to the National Radiology Data Registry (NRDR) Dose Index Registry (DIR) with the [employer] (ACR). RADIATION OPTIMIZATION: All CT scans at this facility use at least one of these dose optimization te chniques: automated exposure control; mA and/or kV adjustment per patient size (includes targeted exa ms where dose is matched to clinical indication); or iterative reconstruction.
--- NOTE | 2022-08-21 21:33 | DI.CT_ITS ---
Exam(s) CT LUMBAR SPINE RECONS CT ABDOMEN PELVIS WO EXAM: CT ABDOMEN PELVIS WO and CT lumbar spine recons CLINICAL HISTORY: vertebral compression fx and right hip pain. TECHNIQUE: Imaging Protocol: Axial computed tomography images with coronal and sagittal reformatted images were created and reviewed. COMPARISON: CT CT CHEST W from 01/02/[address] CHEST LUNG CANCER SCREEN from 01/10/2022 CR,XR XR HIP RT COMPLETE AP PELVIS from 08/21/[address] LUMBAR SPINE RECONS from 08/21/[address] BRAIN NECK CTA from 08/21/2022 CR,XR XR LUMBAR SPINE AP, LAT from 08/21/2022 FINDINGS: There is contrast seen in the renal collecting system and urinary bladder from the CT scan performed the same day. ABDOMEN: Lung Bases: Peripheral opacities are seen in the left lingula and the left lower lobe. Liver: Normal density. There are 2 small hypodensities in the left lobe of the liver. They are too s mall for further characterization but likely reflect small cysts. Gallbladder and biliary tract: No radiodense calculus or biliary ductal dilation. Pancreas: Normal density, no abnormal calcifications or inflammatory process. Spleen: Normal. Kidneys: Normal size, contour and axis.No radiodense stones or obstructive uropathy. No masses seen. Adrenal glands: No mass is seen. Lymph nodes: Within normal limits. Abdominal Aorta: Abdominal portion non-dilated. Atherosclerosis is present. There is a right iliac s tent and a bi femoral bypass graft. PELVIS: Bladder:Symmetric distention, no gross wall thickening. Bowel: There is diverticulosis in the colon, but no evidence of acute diverticulitis. There is a lar ge amount of stool throughout the colon which may represent constipation. There is no evidence of anastasia wel obstruction or bowel wall thickening. Appendix is unremarkable. There is a 1.6 x 0.9 cm fat den sity lesion in the wall of the gastric pylorus consistent with a gastric lipoma. Peritoneal cavity: No ascites, collection or mesenteric inflammatory response. No free air. Reproductive organs: Enlarged prostate gland. Bones: There is a nondisplaced fracture involving the medial aspect of the right superior pubic ramus . There is also nondisplaced fracture involving the medial aspect of the right inferior pubic ramus. Soft Tissues: There is a small fat containing umbilical hernia. CT lumbar spine recons: Degenerative changes are seen in the lumbar spine consistent with the patient 's age. The bones are osteopenic. There is a compression fracture deformity of the superior endplat e of L3. There is loss of approximately 50 percent of the height of the vertebral body. No retropul natacha or central spinal canal compromise is seen. IMPRESSION: 1. Nondisplaced fractures involving the right superior and inferior pubic rami. 2. Compression fracture deformity of the superior endplate of L3. There is loss of approximately 50 percent of the height of the vertebral body. No retropulsion or central spinal canal compromise is p resent. 3. Peripheral opacities in the left lingula and the left lower lobe. These are nonspecific but may r epresent areas of atelectasis or pneumonia. A follow-up examination in 1 month is recommended to doc ument complete clearing. 4. Findings were discussed with Dr. Laguerre at 9 a.m. on 08/22/2022. RADIATION DOSE DELIVERED: 453.52 mGy.cm Total DLP DATA REPOSITORY: All CT scans at this facility are submitted to the National Radiology Data Registry (NRDR) Dose Index Registry (DIR) with the [employer] (ACR). RADIATION OPTIMIZATION: All CT scans at this facility use at least one of these dose optimization te chniques: automated exposure control; mA and/or kV adjustment per patient size (includes targeted exa ms where dose is matched to clinical indication); or iterative reconstruction.
[2022-08-21] MEDS: Normal Saline - Diluent 50 ML VIAL IJ (22:04)
[2022-08-21] MEDS: Omnipaque 350 MG/ML 100 ML BTL IJ (22:04)
--- NOTE | 2022-08-21 22:12 | DI.VRAD_ITS ---
PROCEDURE INFORMATION: Exam: CTA Head Without And With Contrast, Arteriography Exam date and time: 08/21/2022 9:48 PM Age: 72 years old Clinical indication: Abnormal findings; Abnormal CT of the head; Additional info: Anyurism, 6mm TECHNIQUE: Imaging protocol: Computed tomographic angiography of the head without and with contrast. Exam focused on the arteries. 3D rendering (Not supervised by radiologist): MIP and/or 3D reconstructed images were created by the technologist. Radiation optimization: All CT scans at this facility use at least one of these dose optimization techniques: automated exposure control; mA and/or kV adjustment per patient size (includes targeted exams where dose is matched to clinical indication); or iterative reconstruction. Contrast material: OMNI 350; Contrast volume: 100 ml; Contrast route: INTRAVENOUS (IV); COMPARISON: CT HEAD WO 08/21/2022 7:59 PM FINDINGS: ANTERIOR CIRCULATION: Right internal carotid artery: Intracranial segment is patent with no significant stenosis or occlusion. No aneurysm. Right middle cerebral artery: No occlusion or significant stenosis. No aneurysm. Right anterior cerebral artery: No occlusion or significant stenosis. No aneurysm. Left internal carotid artery: Intracranial segment is patent with no significant stenosis. No aneurysm. Left middle cerebral artery: No occlusion or significant stenosis. No aneurysm. Left anterior cerebral artery: 6 x 6 x 6 mm aneurysm arising from the distal aspect of the left A1 segment (series 4, image 85), without evidence of leakage or rupture. POSTERIOR CIRCULATION: Right vertebral artery: No occlusion or significant stenosis. No aneurysm. Left vertebral artery: No occlusion or significant stenosis. No aneurysm. Basilar artery: No occlusion or significant stenosis. No aneurysm. Right posterior cerebral artery: No occlusion or significant stenosis. No aneurysm. Left posterior cerebral artery: No occlusion or significant stenosis. No aneurysm. HEAD: Brain: Normal. No hemorrhage. Unremarkable white matter. No mass effect. Cerebral ventricles: Normal. No ventriculomegaly. Bones/joints: Unremarkable. No acute fracture. Paranasal sinuses: Visualized sinuses are normal. No fluid levels. Mastoid air cells: Visualized mastoids are normal. No mastoid effusion. Soft tissues: Unremarkable. IMPRESSION: 1. 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 2. No intracranial arterial significant stenosis or occlusion. PROCEDURE INFORMATION: Exam: CTA Neck Without And With Contrast Exam date and time: 08/21/2022 9:48 PM Age: 72 years old Clinical indication: Abnormal findings; Abnormal CT of the head; Additional info: Anyurism, 6mm TECHNIQUE: Imaging protocol: Computed tomographic angiography of the neck without and with contrast. 3D rendering (Not supervised by radiologist): MIP and/or 3D reconstructed images were created by the technologist. Radiation optimization: All CT scans at this facility use at least one of these dose optimization techniques: automated exposure control; mA and/or kV adjustment per patient size (includes targeted exams where dose is matched to clinical indication); or iterative reconstruction. Contrast material: OMNI 350; Contrast volume: 100 ml; Contrast route: INTRAVENOUS (IV); COMPARISON: No relevant prior studies available. FINDINGS: Right common carotid artery: No stenosis. No dissection or occlusion. Right internal carotid artery: Calcified atherosclerotic plaque within the proximal right ICA, causing approximately 30% luminal narrowing. Right external carotid artery: No occlusion or stenosis of the origin. Left common carotid artery: No stenosis. No dissection or occlusion. Left internal carotid artery: Calcified atherosclerotic plaque within the proximal left ICA, causing less than 20% luminal narrowing. Left external carotid artery: No occlusion or stenosis of the origin. Right vertebral artery: No stenosis. No dissection or occlusion. Left vertebral artery: No stenosis. No dissection or occlusion. Aorta: Atherosclerotic disease of the visualized thoracic aortic arch, without aneurysm or dissection. Conventional thoracic aortic arch branch anatomy. Soft tissues: Normal. No significant soft tissue swelling. Bones/joints: Multilevel cervical spine degenerative disc space narrowing and osteophyte formation. Mild multilevel bilateral facet and uncovertebral arthropathy. Lungs: Moderate centrilobular emphysema within the visualized lung apices. Right pleuroparenchymal scarring. IMPRESSION: No extracranial arterial significant stenosis or occlusion. REFERENCES: NASCET CRITERIA. The degree of stenosis in the cervical segment of the internal carotid artery is based on NASCET criteria. Normal is no stenosis. Mild is less than 50% stenosis. Moderate is 50-69% stenosis. Severe is 70% to 99% stenosis. Total occlusion is no detectable patent lumen. Dictated and Authenticated by: Jeffery Delgado MD. Ordering:AIDEN Escalona MD
[2022-08-21 23:00] LABS: Troponin I < 50 ng/L (<or=60)
--- NOTE | 2022-08-21 23:17 | DI.VRAD_ITS ---
Addendum created by Frederic Vásquez MD on 08/21/2022 11:30:36 PM EDT: Findings were discussed with DELBERT CAMPOS at 08/21/2022 11:30 PM EDT. Initial report created on 08/21/2022 11:17:40 PM EDT: PROCEDURE INFORMATION: Exam: CT Abdomen And Pelvis Without Contrast Exam date and time: 08/21/2022 9:59 PM Age: 72 years old Clinical indication: Injury or trauma; Fall; Blunt; Generalized; Additional info: Vertebral compression FX and right hip pain TECHNIQUE: Imaging protocol: Computed tomography of the abdomen and pelvis without contrast. COMPARISON: CR XR HIP RT COMPLETE AP PELVIS 08/21/2022 8:04 PM FINDINGS: Liver: Normal. No mass. Gallbladder and bile ducts: Normal. No calcified stones. No ductal dilation. Pancreas: Normal. No ductal dilation. Spleen: Normal. No splenomegaly. Adrenal glands: Normal. No mass. Kidneys and ureters: Normal. No hydronephrosis. Stomach and bowel: The stomach demonstrates wall thickening. This may relate to nondistention, however gastritis is not excluded. There is a 1.4 x 1.0 cm fat containing lesion within the wall of the gastric pylorus, compatible with gastric lipoma. Colonic diverticulosis. No evidence of acute diverticulitis. There is a significant volume of retained stool within the colon. Small bowel loops are nondilated. Appendix: No evidence of appendicitis. Intraperitoneal space: Unremarkable. No free air. No significant fluid collection. Vasculature: Dense abdominal aortic atherosclerotic plaque within its lumen and branch vessels. Changes of fem-fem bypass. A stent is noted within the right common and external iliac artery. Lymph nodes: Unremarkable. No enlarged lymph nodes. Urinary bladder: Unremarkable as visualized. Reproductive: Prostatomegaly. Bones/joints: There is a compression fracture of L3, with approximately 50% loss of height. Soft tissues: Unremarkable. IMPRESSION: 1. There is a compression fracture of L3, with approximately 50% loss of height. No visualized retropulsion of fracture fragments. 2. The stomach demonstrates wall thickening. This may relate to nondistention, however gastritis is not excluded. 3. There is a 1.4 x 1.0 cm fat containing lesion within the wall of the gastric pylorus, compatible with gastric lipoma. Dictated and Authenticated by: Frederic Vásquez MD. Ordering:AIDEN Escalona MD
--- NOTE | 2022-08-21 23:25 | DI.VRAD_ITS ---
PROCEDURE INFORMATION: Exam: CT Lumbar Spine Without Contrast Exam date and time: 08/21/2022 9:59 PM Age: 72 years old Clinical indication: Injury or trauma; Fall; Blunt trauma (contusions or hematomas); Additional info: Vertebral compression FX and right hip pain TECHNIQUE: Imaging protocol: Computed tomography of the lumbar spine without contrast. Radiation optimization: All CT scans at this facility use at least one of these dose optimization techniques: automated exposure control; mA and/or kV adjustment per patient size (includes targeted exams where dose is matched to clinical indication); or iterative reconstruction. COMPARISON: CR XR LUMBAR SPINE AP, LAT 08/21/2022 8:06 PM FINDINGS: Bones/joints: There is an L3 compression fracture, with approximately 50% loss of height. No visualized retropulsion of fracture fragments. Spinal cord: No evidence of significant central canal or neural foraminal stenosis. No evidence of significant disc bulge or herniation. Soft tissues: Please refer to dedicated CT of the abdomen and pelvis for complete findings. IMPRESSION: There is an L3 compression fracture, with approximately 50% loss of height. No visualized retropulsion of fracture fragments. Dictated and Authenticated by: Frederic Vásquez MD. Ordering:AIDEN Escalona MD
--- NOTE | 2022-08-21 23:48 | NUR.NOTE ---
Referral to Care Management to refer patient [place] [facility], for dx of new brain aneurysm tracy.Nursing Note:
[2022-08-22] VITALS: PULSE 65; RESP 11
[2022-08-22 00:01] VITALS: BP 118/62; PULSE 66; PULSE 67; RESP 14
--- NOTE | 2022-08-22 07:21 | NUR.NOTE ---
Nursing Note: Accessed patient chart to determine how many EKG orders were in the chart from the ED. There was an outstanding EKG in ordered status. There are no EKG's in the [employer] system that are outstanding. EKG order was deleted.
--- NOTE | 2022-08-22 13:23 | CMACTNOTE_ITS ---
- If Service Date Differs Date of service: 08/22/22 Time of Service: 13:23 Care Management Activity Note Kal is seen in the ED for a fall. At the request of ED provider, [facility] coordinates a referral to [facility] to assist Kal in obtaining an appointment for further evaluation and treatment of a brain aneurysm. He has [employer] [place] and Medicaid for insurance.
== END 2022-08-22 00:13 | disposition home or self-care (01) ==
PROVIDERS: Emergency Medicine; Emergency Provider Student in an Organized Health Care Education/Training Program; PCP Family Medicine
DX: S32.039A Unspecified fracture of third lumbar vertebra, initial encounter for closed fracture (principal); I67.1 Cerebral aneurysm, nonruptured; M25.551 Pain in right hip; G89.11 Acute pain due to trauma; W19.XXXA Unspecified fall, initial encounter
CPT/HCPCS: 70496; 70498; 80053; 93005; 96365; 96375; 99285; 70450; 71045; 72100; 73502; 74176; 80320; 83735; 84484; 85025; 93010; 99284; J0131; J2270; J3490

== ENCOUNTER 2023-11-05 22:20 | Outpatient (REF) | payer OTHER, MEDICAID, SELFPAY ==
[2023-11-05 22:59] LABS: Abs Immature Grans 0.01 10^3/uL (0.0-0.06); Absolute Basophil Count 0.16 10^3/uL (0.0-0.2); Absolute Eosinophil Count 0.25 10^3/uL (0.0-0.7); Absolute Lymphocyte Count 1.63 10^3/uL (1.2-3.4); Absolute Monocyte Count 0.77 10^3/uL (0.1-0.8); Absolute Neutrophil Count 3.07 10^3/uL (1.2-6.7); Basophils % 2.7 %; Eosinophils % 4.2 %; HCT 40.9 % (40.0-50.0); HGB 13.1 g/dL (13.5-17.5); Immature Grans % 0.2 %; Lymphocytes % 27.7 %; MCH 26.4 pg (27.0-33.0); MCV 83 fL (80-95); MPV 10.9 fL (8.0-11.0); Monocytes % 13.1 %; Neutrophils % 52.1 %; Platelet Count 356 10^3/uL (130-400); RBC 4.96 10^6/uL (4.36-5.78); RDW 16.1 % (11.8-14.1); RDW-SD 48.7 fL; WBC 5.89 10^3/uL (4.4-10.8)
[2023-11-05 23:20] LABS: ALT 29 U/L (16-63); AST 17 U/L (15-37); Albumin 4.2 g/dL (3.4-5.0); Alkaline Phosphatase 76 U/L (46-116); Anion Gap 4.9 mmol/L (3-11); BUN 8 mg/dL (7-18); Bilirubin, Total 0.36 mg/dL (0.2-1.0); CO2 33.1 mmol/L (21.0-32.0); CREATININE 0.6 mg/dL (0.70-1.30); Calcium 9.6 mg/dL (8.5-10.1); Calculated LDL 47 mg/dL (<100); Chloride 100 mmol/L (98-107); Cholesterol 121 mg/dL (<200); Estimated GFR 100.67 (mL/min/1.73m2); Glucose 94 mg/dL (74-106); HDL Cholesterol 59 mg/dL (40-60); Potassium 4.8 mmol/L (3.5-5.1); Sodium 138 mmol/L (136-145); Total Protein 7.1 g/dL (6.4-8.2); Triglyceride 78 mg/dL (<150)
== END 2023-11-05 22:21 | disposition home or self-care (01) ==
LOC: NCHCN 22:20
PROVIDERS: PCP Family Medicine; Visit Provider Family Medicine
DX: E78.6 Lipoprotein deficiency (principal); J44.9 Chronic obstructive pulmonary disease, unspecified
CPT/HCPCS: 80053; 80061; 85025

== ENCOUNTER → 2023-11-28 00:13 | Outpatient (CLI) | payer OTHER, MEDICAID, SELFPAY ==
--- NOTE | 2023-11-28 | DI.CTLCSR_ITS ---
Exam(s) CT CHEST LUNG CANCER SCREEN EXAM: CT CHEST LUNG CANCER SCREEN CLINICAL HISTORY: F17.210 Nicotine dependence,cigarettes,uncomplicated. TECHNIQUE: Imaging Protocol: Low Dose Technique CONTRAST MATERIAL: None COMPARISON: CR,XR XR CHEST 1V IN DI DEPT from 08/21/[address] ABDOMEN PELVIS WO from 08/21/[address] scan 01/10/2022. FINDINGS: CHEST: LUNGS: Scarring in the right lung apex is unchanged from CT scan of 01/10/2022.. However, there are now bilateral spiculated masses which are highly suspicious and were not evident on prior CT scan of January 2022. In the anterior segment of the right upper lobe there is a noncalcified non cavitated spiculated lesion measuring 2.1 x 1.9 cm, suspicious for malignancy. Mild infiltrate in the medial segment of the right middle lobe adjacent to the right heart border appears unchanged. Some atelecta sis in the anterior basal segment of the right lower lobe is noted. No significant lesions in the ri ght lower lobe. In the opposite-left lung there is another spiculated lesion in the anterior segment of the left uppe r lobe measuring 1.4 by 1.0 cm, also not evident on the prior CT scan of January 2022. Also suspic ious foxr malignancy. Benign-appearing increased markings in the lingular segment of the left lung h ave decreased from the previous study. However, there is a pleural based infiltrate now evident in t he anterior basal segment of the left lower lobe measuring approximately 1.5 x 1.2 cm. This is also somewhat suspicious for neoplasm. No other left lower lobe findings. There are no pleural effusions on either side. No findings in the trachea and mainstem bronchi.. MEDIASTINUM: There is no obvious hilar nor mediastinal adenopathy. CARDIAC: Heart size is normal. There is no pericardial effusion.Caliber of the thoracic aorta is wit hin normal limits. OTHER: No obvious adrenal masses. However, the partially visualized abdominal aorta exhibits advance d calcification fluid inguinal intraluminal. Suspect that there may be aortic occlusion here. OSSEOUS: Nonacute appearing compression fracture again noted at T9 level, unchanged.No new compressio n fractures the thoracic vertebrae. No obvious osseous lesions.. IMPRESSION: 1. Compared to prior chest imaging studies listed above there has been development of concerning omin ous spiculated lesions in both lungs which are suspicious for malignancy. Appropriate referral recom mended 2. No pleural effusions nor obvious intrathoracic adenopathy. Incidentally noted is heavy calcified abdominal aorta. Suspect possible abdominal aortic occlusion. 3. Lung RADS Cat 4XS-highly suspicious. Category 3 or 4 nodules with additional features or imaging findings that increases the suspicion of malignancy.Other: Clinically Significant or Potentially Clin ically Significant Findings (non lung cancer) Report called by myself to Dr. Bradford 11/28/2023 3:45 p.m. Lung-RADS 1.0 CATEGORIES: Category 0 - Prior chest CT exam(s) being located for comparison. Category 1 - Annual screening in 12 months. No nodules or definitely benign nodules. Category 2 - Annual screening in 12 months. Benign appearance. Nodules with low likelihood of becomin g active cancer. Category 3 - 6-month follow-up. Probably benign. Short-term follow-up suggested. Nodules with low lik elihood of becoming active cancer. Category 4A - 3-month follow-up and CT/PET if >8 mm in size. Suspicious finding. Findings which requi re additional testing. Category 4B - Findings which require additional testing and tissue sampling. Category 4X - Category 3 or 4 nodules with additional features or imaging findings that increases the suspicion of malignancy. Modifier S- Potentially clinically significant findings (non lung cancer) RADIATION DOSE DELIVERED: Total DLP DATA REPOSITORY: All CT scans at this facility are submitted to the National Radiology Data Registry (NRDR) Dose Index Registry (DIR) with the [employer] (ACR). RADIATION OPTIMIZATION: All CT scans at this facility use at least one of these dose optimization te chniques: automated exposure control; mA and/or kV adjustment per patient size (includes targeted exa ms where dose is matched to clinical indication); or iterative reconstruction.
== END ==
PROVIDERS: PCP Family Medicine; Visit Provider Family Medicine
DX: F17.210 Nicotine dependence, cigarettes, uncomplicated (principal); R91.8 Other nonspecific abnormal finding of lung field
CPT/HCPCS: 71271

== ENCOUNTER 2024-06-23 02:37 | Outpatient (CLI) | payer MEDICARE, MEDICAID, SELFPAY ==
--- NOTE | 2024-06-23 14:10 | DI.CT_ITS ---
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 TECHNIQUE: Multi planar reconstructions were performed. CONTRAST MATERIAL: None COMPARISON: CT CT CHEST LUNG CANCER SCREEN from 01/10/[address] CHEST LUNG CANCER SCREEN from 11/28/2023 FINDINGS: CHEST: LUNGS: Scarring in the right lung apex is unchanged. The spiculated mass in the anterior segment of the right upper lobe is again noted, presently measuri ng approximately 1.5 by 1.1 cm, slightly decreased in size from previous CT scan of 11/28/2023. Some mild infiltrate in the medial segment of the right middle lobe adjacent to the right heart border is unchanged. Benign-appearing platelike atelectasis is noted in the lateral basal segment of the righ t lower lobe. There are no new right lung findings and no pleural effusions. In the opposite-left lung the previously described spiculated lesion in the anterior segment is again noted and measures approximately 1.5 by 1.0 cm, slightly smaller diameter previous. There are mild benign-appearing increased markings in the lingular segment of the left lung again noted. Also some pleural based abnormal thickening in the anterior basal segment of the left lower lobe, unchanged, no t associated with overlying rib destruction. There is no pleural effusion. No new left lung finding s. No pleural effusions. No new findings in the trachea and mainstem bronchi. MEDIASTINUM: There is no obvious hilar nor mediastinal adenopathy. Visualized thyroid unremarkable.No supraclavicular nor axillary adenopathy. CARDIAC: Heart size is normal. There is no pericardial effusion.Caliber of the thoracic aorta is wit hin normal limits. VISUALIZED UPPER ABDOMEN:No adrenal masses nor splenomegaly. Heavily calcified abdominal aorta noted . Suspect possible aortic occlusion OSSEOUS: Again noted is loss of height at superior endplate level T9 vertebral body. No new compress ion fractures evident.No lytic nor blastic osseous lesions.. IMPRESSION: 1. The size of the spiculated masses in both upper lobes have slightly decreased in size from prior C T scan of 11/28/2023. 2. No new additional lung nodules nor pleural effusions. No new intrathoracic adenopathy. 3. Heavily calcified abdominal aorta again noted and correlation with any clinical findings o fLerich e syndrome recommended. RADIATION DOSE DELIVERED: 146.74mGy.cm Total DLP DATA REPOSITORY: All CT scans at this facility are submitted to the National Radiology Data Registry (NRDR) Dose Index Registry (DIR) with the [employer] (ACR). RADIATION OPTIMIZATION: All CT scans at this facility use at least one of these dose optimization te chniques: automated exposure control; mA and/or kV adjustment per patient size (includes targeted exa ms where dose is matched to clinical indication); or iterative reconstruction.
== END 2024-06-23 02:57 ==
LOC: DI 02:37
PROVIDERS: PCP Family Medicine; Visit Provider Radiology Radiation Oncology
DX: C34.11 Malignant neoplasm of upper lobe, right bronchus or lung (principal); C34.12 Malignant neoplasm of upper lobe, left bronchus or lung
CPT/HCPCS: 71250

== ENCOUNTER → 2024-09-30 13:48 | Outpatient (BNVA) | payer MEDICARE, MEDICAID, SELFPAY | PROVIDERS: PCP Family Medicine; Referring Provider Family Medicine; Visit Provider Podiatrist | DX: L60.3 Nail dystrophy (principal); B35.1 Tinea unguium; M79.674 Pain in right toe(s); M79.675 Pain in left toe(s); L60.2 Onychogryphosis; L60.0 Ingrowing nail; J44.9 Chronic obstructive pulmonary disease, unspecified; F17.200 Nicotine dependence, unspecified, uncomplicated | CPT/HCPCS: 11721 ==

== ENCOUNTER 2024-11-10 15:56 | Outpatient (REF) | payer MEDICARE, MEDICAID, SELFPAY ==
[2024-11-10 21:34] LABS: Abs Immature Grans 0.01 10^3/uL (0.0-0.06); HCT 42.1 % (40.0-50.0); HGB 13.9 g/dL (13.5-17.5); Immature Grans % 0.2 %; MCH 27.0 pg (27.0-33.0); MCHC 33.0 % (32.0-36.0); MCV 82 fL (80-95); MPV 10.9 fL (8.0-11.0); Platelet Count 294 10^3/uL (130-400); RBC 5.14 10^6/uL (4.36-5.78); RDW 16.4 % (11.8-14.1); RDW-SD 49.0 fL; WBC 5.78 10^3/uL (4.4-10.8)
[2024-11-10 21:46] LABS: ALT 25 U/L (16-63); AST 18 U/L (15-37); Albumin 4.4 g/dL (3.4-5.0); Alkaline Phosphatase 97 U/L (46-116); Anion Gap 8.1 mmol/L (3-11); BUN 9 mg/dL (7-18); Bilirubin, Total 0.4 mg/dL (0.2-1.0); CO2 29.9 mmol/L (21.0-32.0); Calcium 10.2 mg/dL (8.5-10.1); Chloride 100 mmol/L (98-107); Estimated GFR 113.08 (mL/min/1.73m2); Glucose 90 mg/dL (74-106); Potassium 4.8 mmol/L (3.5-5.1); Sodium 138 mmol/L (136-145); Total Protein 7.3 g/dL (6.4-8.2)
== END 2024-11-10 15:57 | disposition home or self-care (01) ==
LOC: NCHCN 15:56
PROVIDERS: PCP Family Medicine; Visit Provider Family Medicine
DX: I10 Essential (primary) hypertension (principal)
CPT/HCPCS: 80053; 85025

== ENCOUNTER 2024-12-01 13:48 | Outpatient (REF) | payer MEDICARE, MEDICAID, SELFPAY ==
[2024-12-01 22:24] LABS: Anion Gap 7.5 mmol/L (3-11); BUN 9 mg/dL (7-18); CO2 29.5 mmol/L (21.0-32.0); Calcium 9.5 mg/dL (8.5-10.1); Chloride 98 mmol/L (98-107); Estimated GFR 105.71 (mL/min/1.73m2); Glucose 97 mg/dL (74-106); Potassium 4.5 mmol/L (3.5-5.1); Sodium 135 mmol/L (136-145)
== END 2024-12-01 13:49 | disposition home or self-care (01) ==
LOC: NCHCN 13:48
PROVIDERS: PCP Family Medicine; Visit Provider Family Medicine
DX: I10 Essential (primary) hypertension (principal)
CPT/HCPCS: 80048

== ENCOUNTER 2024-12-21 02:41 | Outpatient (CLI) | payer MEDICARE, MEDICAID, SELFPAY ==
--- NOTE | 2024-12-21 | DI.CT_ITS ---
Exam(s) CT CHEST WO EXAM: CT CHEST WO CLINICAL HISTORY: Primary malignant neoplasm of RUL and BRIA of lungs, C34.11, C34.12;. TECHNIQUE: Multi planar reconstructions were performed. CONTRAST MATERIAL: None COMPARISON: CT CT CHEST WO from 06/23/2024 FINDINGS: CHEST: LUNGS: In the right lung the previously described spiculated nodule in the anterior segment is again noted, exhibiting minimal if any significant change. It has not increased in size. However, there is a new suspicious smaller spiculated nodule in the right upper lobe which measures 6 mm (series 2/image 37). There are no new additional new right lung nodules. No pleural effusions. In the opposite-left lung the spiculated nodular density in the anterior segment of the upper lobe has not increased in size. There are no new significant focal left lung findings. No pleural effusion. No new findings in the trachea and mainstem bronchi. MEDIASTINUM: There is no obvious hilar nor mediastinal adenopathy. Visualized thyroid unremarkable.No obvious axillary adenopathy CARDIAC: Heart size is normal. There is no pericardial effusion.Coronary artery calcifications noted. Thoracic aorta is calcified but not enlarged. VISUALIZED UPPER ABDOMEN:There is again noted severe calcification within the lumen of the partially visualize upper abdominal aorta. Suspect possible occlusion. OSSEOUS: Again noted is loss of height of superior endplate of T9 which is unchanged. There are no new compression fractures evident. No new osseous lesions evident.. IMPRESSION: 1. Compared to the prior chest CT scan of 06/23/2024 the previously described bilateral upper lobe spiculated lesions remain stable. However, there is a new spiculated 6 mm nodule in the right upper lobe now evident (series 2/image 37). This is suspicious for neoplasm. There are no new nodules in the opposite-left lung. 2. There are no pleural effusions nor hilar/mediastinal adenopathy. 3. Heavily calcified abdominal aorta lumen again noted and correlation with any clinical signs of abdominal aorta occlusion/ Leriche syndrome is recommended. RADIATION DOSE DELIVERED: 161.31mGy.cm Total DLP DATA REPOSITORY: All CT scans at this facility are submitted to the National Radiology Data Registry (NRDR) Dose Index Registry (DIR) with the [employer] (ACR). RADIATION OPTIMIZATION: All CT scans at this facility use at least one of these dose optimization techniques: automated exposure control; mA and/or kV adjustment per patient size (includes targeted exams where dose is matched to clinical indication); or iterative reconstruction.
== END 2024-12-21 03:01 ==
PROVIDERS: PCP Family Medicine; Visit Provider Physician Assistant
DX: C34.11 Malignant neoplasm of upper lobe, right bronchus or lung (principal); C34.12 Malignant neoplasm of upper lobe, left bronchus or lung
CPT/HCPCS: 71250

== ENCOUNTER → 2025-02-16 11:42 | Outpatient (BNVA) | payer MEDICARE, MEDICAID, SELFPAY | PROVIDERS: PCP Family Medicine; Referring Provider Family Medicine; Visit Provider Podiatrist | DX: L60.3 Nail dystrophy (principal); B35.1 Tinea unguium; M79.674 Pain in right toe(s); M79.675 Pain in left toe(s); L60.2 Onychogryphosis; L60.0 Ingrowing nail; I73.89 Other specified peripheral vascular diseases; R09.89 Other specified symptoms and signs involving the circulatory and respiratory systems; R20.8 Other disturbances of skin sensation; R25.2 Cramp and spasm; Z79.01 Long term (current) use of anticoagulants; R23.4 Changes in skin texture; L60.8 Other nail disorders; L85.8 Other specified epidermal thickening | CPT/HCPCS: 11056; 11721 ==

== ENCOUNTER → 2025-04-05 03:46 | Outpatient (CLI) | payer MEDICARE, MEDICAID, SELFPAY ==
--- NOTE | 2025-04-05 | DI.CT_ITS ---
Exam(s) CT CHEST WO EXAM: CT CHEST WO CLINICAL HISTORY: RUL LUNG CA,C34.11,BRIA LUNG CA,C34.12,S/P SBFT,ASSESS TREATMENT RESPONSE. TECHNIQUE: Multi planar reconstructions were performed. CONTRAST MATERIAL: None COMPARISON: CT CT CHEST WO from 12/21/2024 FINDINGS: CHEST: LUNGS: Scarring in the right lung apex is unchanged nodular density in the right upper lobe exhibits minimal if any significant increased in size. In the anterior segment of the right upper lobe the previously described spiculated nodule also appears stable, unchanged in size. There are no new right upper lobe findings. However, there is a new pleural based nodule in the right lower lobe measuring 1.2 cm by 0.9 cm, not previously present. There is also a new spiculated nodule in the right lower lobe measuring 8 by 6 mm. There is also a small nodular infiltrate in the medial segment of the right middle lobe measuring 6 mm, not previously present although this area is somewhat blurred by respiratory motion artifact. In the left lung the previously described spiculated nodular density remains unchanged. However above this level in the left upper lobe there is a new spiculated nodule measuring 4 mm. There is also a new pleural-based 3 millimeter nodule in the left lower lobe posteriorly. There are no pleural effusions. MEDIASTINUM: There is no obvious new hilar nor mediastinal adenopathy. Visualized thyroid unremarkable.No obvious axillary adenopathy CARDIAC: Heart size is normal. There is no pericardial effusion.Coronary artery calcification. Thoracic aorta is calcified and there is heavy luminal calcification in the partially visualized abdominal aorta noted. Suspect possible occlusion of the aorta at this level. Difficult to assess without IV contrast.. VISUALIZED UPPER ABDOMEN:No ascites. No adrenal masses nor splenomegaly. OSSEOUS: No significant osseous lesions.No new fractures.. Height loss of T 9 vertebral body is unchanged. IMPRESSION: 1. Compared to the prior CT scan of 12/21/2024 there has been further deterioration with increasing number of spiculated lung nodules as described individually above. The largest new nodule is pleural base posteriorly in the right lobe measuring 12 x 9 mm. 2. No obvious new intrathoracic adenopathy. No pleural effusions. 3. Heavily calcified abdominal aorta lumen again noted. Suspect possible Leriche syndrome/aortic occlusion at this level. RADIATION DOSE DELIVERED: 168.04mGy.cm Total DLP DATA REPOSITORY: All CT scans at this facility are submitted to the National Radiology Data Registry (NRDR) Dose Index Registry (DIR) with the [employer] (ACR). RADIATION OPTIMIZATION: All CT scans at this facility use at least one of these dose optimization techniques: automated exposure control; mA and/or kV adjustment per patient size (includes targeted exams where dose is matched to clinical indication); or iterative reconstruction.
== END ==
LOC: DI 03:46
PROVIDERS: PCP Family Medicine; Visit Provider Colon & Rectal Surgery
DX: C34.11 Malignant neoplasm of upper lobe, right bronchus or lung (principal); C34.12 Malignant neoplasm of upper lobe, left bronchus or lung
CPT/HCPCS: 71250